=== PATIENT | male | born 1985 | race Caucasian/White ===

== ENCOUNTER 2018-03-09 17:31 | Emergency (ER) | payer OTHER ==
[~2018-03-09] VITALS: Ht 177.8 cm; Wt 83.0 kg
[2018-03-09 18:48] VITALS: BP 149/92
== END 2018-03-09 18:48 | disposition home or self-care (01) ==
LOC: ED 17:31
DX: S67.02XA Crushing injury of left thumb, initial encounter (principal); W22.8XXA Striking against or struck by other objects, initial encounter; Y93.89 Activity, other specified; Y92.89 Other specified places as the place of occurrence of the external cause; Y99.8 Other external cause status
CPT/HCPCS: J1885; Q0092

== ENCOUNTER 2018-03-13 09:01 | Emergency (ER) | payer OTHER ==
[~2018-03-13] VITALS: Ht 175.3 cm; Wt 84.4 kg
[2018-03-13 09:21] VITALS: Ht 175.3 cm; Wt 84.4 kg
[2018-03-13 09:59] VITALS: BP 119/67
== END 2018-03-13 09:59 | disposition home or self-care (01) ==
LOC: ED 09:01
DX: S60.112D Contusion of left thumb with damage to nail, subsequent encounter (principal); X58.XXXD Exposure to other specified factors, subsequent encounter